=== PATIENT | male | born 1970 | race Hispanic/Latino ===

== ENCOUNTER 2020-10-11 11:03 | Inpatient (IN) | payer BC ==
[2020-10-11] VITALS (23 sets, daily range): BP systolic 48–107; BP diastolic 25–57
[~2020-10-11] VITALS: Ht 185.4 cm; Wt 147.4 kg
[2020-10-11] MEDS ORDERED: SODIUM CHLORIDE 0.9% 1000ML 1,000 ML IV STA (11:05)
[2020-10-11] MEDS ORDERED: SODIUM CHLORIDE 0.9% 250ML 250 ML IV ONE ×2 (11:15→12:00)
[2020-10-11 11:34] LABS: BASOPHILS % 0.5 % (0.0-1.0); EOSINOPHILS # (AUTO) 0.1 (0.0-0.4); EOSINOPHILS % 1.4 % (0.0-6.0); HEMATOCRIT 21.1 % (38.2-49.6); LYMPHOCYTES # (AUTO) 0.6 (1.0-3.2); LYMPHOCYTES % 8.8 % (18.0-39.1); MEAN CORPUSCULAR HEMOGLOBIN 29.9 pg (28-32); MEAN CORPUSCULAR HGB CONC 30.3 g/dL (31-35); MEAN CORPUSCULAR VOLUME 98.6 fL (81-99); MONOCYTES # (AUTO) 0.3 (0.2-0.8); MONOCYTES % 5.5 % (4.4-11.3); NEUTROPHILS # (AUTO) 4.4 (2.1-6.9); NEUTROPHILS % 70.5 % (38.7-80.0); PLATELET COUNT 62 x10e3/uL (140-360); RED BLOOD COUNT 2.14 x10e6/uL (4.3-5.7); RED CELL DISTRIBUTION WIDTH 17.8 % (11.7-14.4)
[2020-10-11 11:40] LABS: HEMOGLOBIN 6.4 g/dL (14.0-18.0)
[2020-10-11 11:46] LABS: INR 1.23; PROTHROMBIN TIME 16.2 seconds (11.9-14.5)
[2020-10-11 11:56] LABS: ALBUMIN 1.9 g/dL (3.5-5.0); ALBUMIN/GLOBULIN RATIO 0.6 (0.8-2.0); ANION GAP 26.5 mmol/L (8-16); CALCIUM 8.3 mg/dL (8.4-10.2); CREATININE, SERUM 4.37 mg/dL (0.72-1.25); POTASSIUM 5.5 mmol/L (3.5-5.1)
[2020-10-11] MEDS ORDERED: PIPERACILLIN/TAZOBAC 3.375 GM in SODIUM CHLORIDE 0.9% 50ML 50 ML IV ONE (12:00)
[2020-10-11] MEDS ORDERED: OCTREOTIDE ACETATE 500 MCG in SODIUM CHLORIDE 0.9% 250ML 250 ML IV SCH (12:00)
[2020-10-11] MEDS ORDERED: PROPOFOL IV EMULSION 10MG/ML 100 ML IV PRN (12:00)
[2020-10-11] MEDS ORDERED: NOREPINEPHRINE INJ 4MG/4ML 8 MG in DEXTROSE 5% 250ML 250 ML IV SCH (12:00)
[2020-10-11] MEDS ORDERED: NOREPINEPHRINE 8 MG/D5W 250 ML 250 ML IV PRN (12:00)
[2020-10-11 12:02] LABS: B-TYPE NATRIURETIC PEPTIDE2 67.7 pg/mL (0-100)
[2020-10-11] MEDS: PROPOFOL IV EMULSION 10MG/ML 100 ML IV SCH (12:15)
[2020-10-11 12:16] LABS: ANISOCYTOSIS SLIGHT; BAND NEUTROPHILS % (MANUAL) 4 %; EOSINOPHILS % (MANUAL) 1 % (0-7); LYMPHOCYTES % (MANUAL) 9 % (19-48); MONOCYTES % (MANUAL) 6 % (3.4-9.0); MYELOCYTES % (MANUAL) 6 % (0-0); NEUTROPHILS % (MANUAL) 74 % (40-74); NUCLEATED RED BLOOD CELLS 10; PLATELET ESTIMATE MODERATELY DECREASED; PLATELET MORPHOLOGY COMMENT NORMAL; RBC MORPHOLOGY COMMENT ABNORMAL
[2020-10-11 12:17] LABS: POLYCHROMASIA FEW
[2020-10-11] MEDS: NOREPINEPHRINE 8 MG/D5W 250 ML 250 ML IV SCH (12:21)
[2020-10-11] MEDS ORDERED: VANCOMYCIN 1GM/NS 250 ML 250 ML IV ONE (12:30)
[2020-10-11] MEDS ORDERED: ACETAMINOPHEN 325 MG TAB PO ONE (12:45)
[2020-10-11] MEDS ORDERED: ETOMIDATE 2 MG/ML 10 ML INJ IV ONE (12:58)
[2020-10-11] MEDS ORDERED: SUCCINYLCHOLINE CHLORIDE 20 MG/ML 10ML VIAL ONE (12:58)
[2020-10-11] MEDS ORDERED: PANTOPRAZOLE 40 MG 10ML VIAL IV SCH (13:00)
[2020-10-11] MEDS: OCTREOTIDE ACETATE 500 MCG in SODIUM CHLORIDE 0.9% 250ML 249 ML IV SCH ×2 (13:00→23:15)
[2020-10-11] MEDS: LORAZEPAM INJ 2 MG/ML VIAL IV PRN (13:00)
[2020-10-11 13:06] LABS: BASOPHILS % 0.6 % (0.0-1.0); EOSINOPHILS # (AUTO) 0.1 (0.0-0.4); EOSINOPHILS % 1.9 % (0.0-6.0); HEMATOCRIT 24.7 % (38.2-49.6); HEMOGLOBIN 7.7 g/dL (14.0-18.0); LYMPHOCYTES # (AUTO) 0.6 (1.0-3.2); MEAN CORPUSCULAR HEMOGLOBIN 30.4 pg (28-32); MEAN CORPUSCULAR HGB CONC 31.2 g/dL (31-35); MEAN CORPUSCULAR VOLUME 97.6 fL (81-99); MONOCYTES # (AUTO) 0.3 (0.2-0.8); MONOCYTES % 4.2 % (4.4-11.3); NEUTROPHILS # (AUTO) 4.3 (2.1-6.9); NEUTROPHILS % 66.5 % (38.7-80.0); PLATELET COUNT 56 x10e3/uL (140-360); RED BLOOD COUNT 2.53 x10e6/uL (4.3-5.7); RED CELL DISTRIBUTION WIDTH 16.9 % (11.7-14.4)
[2020-10-11] MEDS: FENTANYL 2000MCG/NS 250 250 ML IV SCH (13:45)
[2020-10-11] MEDS ORDERED: SODIUM CHLORIDE 0.9% 250ML 250 ML ONE ×3 (13:46→21:13)
[2020-10-11] MEDS ORDERED: PIPERACILLIN/TAZOBAC 3.375 GM VIAL ONE (14:00)
[2020-10-11 14:01] LABS: ABG HCO3 22 mmol/L (22-26); ABG PCO2 47 mmHg (35-45); ABG PH 7.27 (7.35-7.45); ABG PO2 79 mmHg (80-105); ABG TCO2 23
[2020-10-11] MEDS ORDERED: SODIUM CHLORIDE 0.9% 100 ML ONE (14:01)
[2020-10-11] MEDS: MEROPENEM 500MG/ NS 50ML 50 ML IV SCH (15:00)
[2020-10-11 17:18] LABS: BAND NEUTROPHILS % (MANUAL) 7 %; LYMPHOCYTES % (MANUAL) 8 % (19-48); METAMYELOCYTES % (MANUAL) 8 % (0-0); MONOCYTES % (MANUAL) 5 % (3.4-9.0); MYELOCYTES % (MANUAL) 5 % (0-0); NEUTROPHILS % (MANUAL) 65 % (40-74); NUCLEATED RED BLOOD CELLS 9; PROMYELOCYTES % (MANUAL) 2 % (0-0)
[2020-10-11 17:19] LABS: PLATELET ESTIMATE MARKEDLY DECREASED
[2020-10-11 17:20] LABS: PLATELET MORPHOLOGY COMMENT FEW GIANT
[2020-10-11 17:21] LABS: POLYCHROMASIA MODE
[2020-10-11] MEDS ORDERED: PHYTONADIONE 1 MG/0.5 ML AMP INJ ONE (19:15)
[2020-10-11] MEDS ORDERED: ONDANSETRON HCL INJ 2MG/ML 2ML 2 MG/ML VIAL IV PRN (19:45)
[2020-10-11] MEDS ORDERED: PHYTONADIONE 10MG/ML 20 MG in SODIUM CHLORIDE 0.9% 50ML 50 ML IV ONE (19:45)
[2020-10-11] MEDS ORDERED: HEPARIN SOD (PORCINE) 1000 UNIT/ML SDV IV ONE (20:00)
[2020-10-11] MEDS ORDERED: MIDODRINE HCL5 MG PO (20:53)
[2020-10-11] MEDS ORDERED: TYLENOL # 31 EA PO (20:55)
[2020-10-11] MEDS ORDERED: MIDODRINE HCL2.5 MG PO (20:55)
[2020-10-11] MEDS: PANTOPRAZOL 40MG/SOD CHL 0.9% 50 ML IV SCH (22:04)
[2020-10-11 23:31] LABS: BASOPHILS % 0.6 % (0.0-1.0); EOSINOPHILS # (AUTO) 0.2 (0.0-0.4); EOSINOPHILS % 2.8 % (0.0-6.0); HEMATOCRIT 26.7 % (38.2-49.6); HEMOGLOBIN 8.5 g/dL (14.0-18.0); LYMPHOCYTES # (AUTO) 0.5 (1.0-3.2); MEAN CORPUSCULAR HGB CONC 31.8 g/dL (31-35); MEAN CORPUSCULAR VOLUME 94.3 fL (81-99); MONOCYTES # (AUTO) 0.4 (0.2-0.8); MONOCYTES % 6.1 % (4.4-11.3); NEUTROPHILS # (AUTO) 4.7 (2.1-6.9); NEUTROPHILS % 70.8 % (38.7-80.0); PLATELET COUNT 83 x10e3/uL (140-360); RED BLOOD COUNT 2.83 x10e6/uL (4.3-5.7); RED CELL DISTRIBUTION WIDTH 17.3 % (11.7-14.4)
[2020-10-12] VITALS (24 sets, daily range): BP systolic 82–107; BP diastolic 44–65
[2020-10-12] MEDS ORDERED: ACETAMINOPHEN 1000 MG/100 ML IV STA (00:11)
[2020-10-12] MEDS ORDERED: ALBUMIN 25% 25GM 100ML 0.25 GM/ML BTL IV ONE (00:15)
[2020-10-12] MEDS ORDERED: PHENYLEPHRINE 10MG/ML VIAL 40 MG in DEXTROSE 5% 250ML 246 ML IV SCH (00:15)
[2020-10-12] MEDS ORDERED: ALBUMIN 25% 25GM 100ML 100 ML ONE (00:19)
[2020-10-12] MEDS ORDERED: ACETAMINOPHEN 1000 MG/100 ML 100 ML IV ONE (00:32)
[2020-10-12] MEDS: PANTOPRAZOL 40MG/SOD CHL 0.9% 50 ML IV SCH ×5 (02:16→22:00)
[2020-10-12] MEDS: MEROPENEM 500MG/ NS 50ML 50 ML IV SCH ×2 (02:25→20:30)
[2020-10-12] MEDS ORDERED: PHENYLEPHRINE 10MG/ML VIAL 40 MG in DEXTROSE 5% 250ML 246 ML IV PRN (04:15)
[2020-10-12 04:57] LABS: BASOPHILS % 0.5 % (0.0-1.0); EOSINOPHILS # (AUTO) 0.2 (0.0-0.4); EOSINOPHILS % 3.3 % (0.0-6.0); HEMATOCRIT 26.5 % (38.2-49.6); HEMOGLOBIN 8.4 g/dL (14.0-18.0); LYMPHOCYTES # (AUTO) 0.7 (1.0-3.2); LYMPHOCYTES % 10.8 % (18.0-39.1); MEAN CORPUSCULAR HGB CONC 31.7 g/dL (31-35); MEAN CORPUSCULAR VOLUME 94.6 fL (81-99); MONOCYTES # (AUTO) 0.2 (0.2-0.8); MONOCYTES % 3.6 % (4.4-11.3); NEUTROPHILS # (AUTO) 4.4 (2.1-6.9); NEUTROPHILS % 70.2 % (38.7-80.0); PLATELET COUNT 78 x10e3/uL (140-360); RED CELL DISTRIBUTION WIDTH 17.3 % (11.7-14.4)
[2020-10-12 05:20] LABS: ALBUMIN 2.2 g/dL (3.5-5.0); ALBUMIN/GLOBULIN RATIO 0.7 (0.8-2.0); ANION GAP 25.8 mmol/L (8-16); CALCIUM 8.2 mg/dL (8.4-10.2); CREATININE, SERUM 4.45 mg/dL (0.72-1.25); POTASSIUM 4.8 mmol/L (3.5-5.1)
[2020-10-12 05:40] LABS: MAGNESIUM 2.1 MG/DL (1.3-2.1); PHOSPHORUS 4.8 MG/DL (2.3-4.7)
[2020-10-12] MEDS: VASOPRESSIN 60 UNIT in DEXTROSE 5% 50ML 57 ML IV PRN (05:57)
[2020-10-12] MEDS ORDERED: VASOPRESSIN INJ 20 UNIT/ML VIAL ONE (06:08)
[2020-10-12 07:07] LABS: BAND NEUTROPHILS % (MANUAL) 3 %; EOSINOPHILS % (MANUAL) 6 % (0-7); LYMPHOCYTES % (MANUAL) 11 % (19-48); MONOCYTES % (MANUAL) 3 % (3.4-9.0); MYELOCYTES % (MANUAL) 2 % (0-0); NEUTROPHILS % (MANUAL) 75 % (40-74); NUCLEATED RED BLOOD CELLS 21
[2020-10-12 07:08] LABS: PLATELET ESTIMATE SLIGHTLY DECREASED; PLATELET MORPHOLOGY COMMENT NORMAL; POLYCHROMASIA FEW
[2020-10-12 07:09] LABS: ANISOCYTOSIS SLIGHT; RBC MORPHOLOGY COMMENT ABNORMAL
[2020-10-12] MEDS: OCTREOTIDE ACETATE 500 MCG in SODIUM CHLORIDE 0.9% 250ML 249 ML IV SCH ×2 (09:24→19:00)
[2020-10-12] MEDS: PROPOFOL IV EMULSION 10MG/ML 100 ML IV SCH (12:15)
[2020-10-12] MEDS: NOREPINEPHRINE 8 MG/D5W 250 ML 250 ML IV SCH ×2 (12:43→19:00)
[2020-10-12] MEDS: FENTANYL 2000MCG/NS 250 250 ML IV SCH (12:44)
[2020-10-12] MEDS ORDERED: MANNITOL 25% 12.5GM/50ML 100 ML ONE (16:05)
[2020-10-12] MEDS ORDERED: SODIUM CHLORIDE 0.9% 1000ML 2,000 ML ONE (16:06)
[2020-10-12] MEDS ORDERED: HEPARIN SOD (PORCINE) 1000 UNIT/ML SDV IV PRN (16:30)
[2020-10-12] MEDS ORDERED: MANNITOL 25% 12.5GM/50 ML VIAL IV PRN (16:30)
[2020-10-12] MEDS ORDERED: SODIUM CHLORIDE 0.9% 1000ML 2,000 ML IV PRN (16:30)
[2020-10-12 17:19] LABS: CLARITY,URINE CLOUDY (CLEAR); COLOR,URINE RED (YELLOW); KETONES,URINE NEGATIVE (NEGATIVE); LEUKOCYTE ESTERASE ,URINE LARGE (NEGATIVE); NITRITE,URINE NEGATIVE (NEGATIVE); PROTEIN,URINE DIPSTICK >=300 (NEGATIVE); URINE UROBILINOGEN 0.2 mg/dL (0.2 - 1)
[2020-10-12 17:20] LABS: CLARITY,URINE CLOUDY (CLEAR); COLOR,URINE RED (YELLOW); KETONES,URINE NEGATIVE (NEGATIVE); LEUKOCYTE ESTERASE ,URINE TRACE (NEGATIVE); NITRITE,URINE POSITIVE (NEGATIVE); PROTEIN,URINE DIPSTICK 2+ (NEGATIVE); URINE UROBILINOGEN 1 mg/dL (0.2 - 1)
[2020-10-12 17:33] LABS: BACTERIA,URINE MANY /HPF
[2020-10-12 17:34] LABS: BACTERIA,URINE FEW /HPF; RBC,URINE >50 /HPF (0-5); WBC,URINE (MAN) 0-5 /HPF (0-5)
[2020-10-12 17:50] LABS: ABG HCO3 36 mmol/L (22-26); ABG PCO2 64 mmHg (35-45); ABG PH 7.36 (7.35-7.45); ABG PO2 159 mmHg (80-105); ABG TCO2 38
[2020-10-12] MEDS: ACETAMINOPHEN 325 MG TAB NG PRN (17:51)
[2020-10-13] VITALS (39 sets, daily range): BP systolic 80–117; BP diastolic 40–60
[2020-10-13] MEDS: ACETAMINOPHEN 325 MG TAB NG PRN ×4 (00:08→21:11)
[2020-10-13] MEDS: NOREPINEPHRINE 8 MG/D5W 250 ML 250 ML IV SCH ×2 (00:11→21:00)
[2020-10-13] MEDS: VASOPRESSIN 60 UNIT in DEXTROSE 5% 50ML 57 ML IV PRN ×2 (04:07→20:24)
[2020-10-13] MEDS: PANTOPRAZOL 40MG/SOD CHL 0.9% 50 ML IV SCH ×5 (04:07→20:24)
[2020-10-13 06:34] LABS: BASOPHILS % 0.5 % (0.0-1.0); EOSINOPHILS # (AUTO) 0.3 (0.0-0.4); EOSINOPHILS % 4.3 % (0.0-6.0); HEMATOCRIT 24.9 % (38.2-49.6); HEMOGLOBIN 7.8 g/dL (14.0-18.0); LYMPHOCYTES # (AUTO) 0.5 (1.0-3.2); LYMPHOCYTES % 7.5 % (18.0-39.1); MEAN CORPUSCULAR HEMOGLOBIN 29.9 pg (28-32); MEAN CORPUSCULAR HGB CONC 31.3 g/dL (31-35); MEAN CORPUSCULAR VOLUME 95.4 fL (81-99); MONOCYTES # (AUTO) 0.4 (0.2-0.8); MONOCYTES % 5.3 % (4.4-11.3); NEUTROPHILS # (AUTO) 4.5 (2.1-6.9); NEUTROPHILS % 68.4 % (38.7-80.0); PLATELET COUNT 56 x10e3/uL (140-360); RED BLOOD COUNT 2.61 x10e6/uL (4.3-5.7); RED CELL DISTRIBUTION WIDTH 18.1 % (11.7-14.4)
[2020-10-13 06:45] LABS: ALBUMIN 1.9 g/dL (3.5-5.0); ALBUMIN/GLOBULIN RATIO 0.6 (0.8-2.0); ANION GAP 23.2 mmol/L (8-16); CALCIUM 7.7 mg/dL (8.4-10.2); CREATININE, SERUM 3.41 mg/dL (0.72-1.25); MAGNESIUM 1.8 MG/DL (1.3-2.1); PHOSPHORUS 3.6 MG/DL (2.3-4.7); POTASSIUM 4.2 mmol/L (3.5-5.1)
[2020-10-13] MEDS: OCTREOTIDE ACETATE 500 MCG in SODIUM CHLORIDE 0.9% 250ML 249 ML IV SCH ×2 (07:25→18:07)
[2020-10-13] MEDS: LORAZEPAM INJ 2 MG/ML VIAL IV PRN (08:52)
[2020-10-13] MEDS: FENTANYL 2000MCG/NS 250 250 ML IV SCH (08:52)
[2020-10-13] MEDS: MEROPENEM 500MG/ NS 50ML 50 ML IV SCH ×2 (09:30→21:10)
[2020-10-13 09:36] LABS: BAND NEUTROPHILS % (MANUAL) 3 %; EOSINOPHILS % (MANUAL) 4 % (0-7); LYMPHOCYTES % (MANUAL) 8 % (19-48); MONOCYTES % (MANUAL) 3 % (3.4-9.0); MYELOCYTES % (MANUAL) 1 % (0-0); NEUTROPHILS % (MANUAL) 81 % (40-74); NUCLEATED RED BLOOD CELLS 2
[2020-10-13] MEDS ORDERED: ALBUMIN 25% 25GM 100ML 0.25 GM/ML BTL IV ONE (10:02)
[2020-10-13] MEDS ORDERED: SENNA-S TABLET PO ONE (10:30)
[2020-10-13] MEDS ORDERED: MANNITOL 25% 12.5GM/50 ML VIAL IV PRN (11:15)
[2020-10-13] MEDS ORDERED: ALBUMIN 25% 12.5GM 0.25 GM/ML BTL IV PRN ×2 (11:15)
[2020-10-13] MEDS ORDERED: SODIUM CHLORIDE 0.9% 1000ML 2,000 ML IV PRN (11:15)
[2020-10-13] MEDS ORDERED: HEPARIN SOD (PORCINE) 1000 UNIT/ML SDV IV PRN (11:15)
[2020-10-13] MEDS ORDERED: SODIUM CHLORIDE 0.9% 250ML 500 ML IV PRN (11:15)
[2020-10-13] MEDS: PROPOFOL IV EMULSION 10MG/ML 100 ML IV SCH (12:15)
[2020-10-13] MEDS: HYDROCORTISONE SOD SUCCINATE 100 MG VIAL IV SCH ×3 (13:39→21:10)
[2020-10-13] MEDS ORDERED: VASOPRESSIN INJ 20 UNIT/ML VIAL ONE (19:52)
[2020-10-14] VITALS (25 sets, daily range): BP systolic 92–145; BP diastolic 52–84
[2020-10-14] MEDS: PANTOPRAZOL 40MG/SOD CHL 0.9% 50 ML IV SCH ×5 (01:06→23:00)
[2020-10-14] MEDS: OCTREOTIDE ACETATE 500 MCG in SODIUM CHLORIDE 0.9% 250ML 249 ML IV SCH ×4 (04:00→22:00)
[2020-10-14 06:32] LABS: BASOPHILS % 0.5 % (0.0-1.0); EOSINOPHILS # (AUTO) 0.1 (0.0-0.4); EOSINOPHILS % 1.4 % (0.0-6.0); LYMPHOCYTES # (AUTO) 0.6 (1.0-3.2); LYMPHOCYTES % 10.1 % (18.0-39.1); MEAN CORPUSCULAR HGB CONC 31.5 g/dL (31-35); MEAN CORPUSCULAR VOLUME 95.3 fL (81-99); MONOCYTES # (AUTO) 0.3 (0.2-0.8); MONOCYTES % 4.9 % (4.4-11.3); NEUTROPHILS # (AUTO) 3.9 (2.1-6.9); NEUTROPHILS % 70.8 % (38.7-80.0); RED BLOOD COUNT 2.33 x10e6/uL (4.3-5.7); RED CELL DISTRIBUTION WIDTH 18.5 % (11.7-14.4)
[2020-10-14 06:37] LABS: HEMATOCRIT 22.2 % (38.2-49.6); PLATELET COUNT 34 x10e3/uL (140-360)
[2020-10-14] MEDS: NOREPINEPHRINE 8 MG/D5W 250 ML 250 ML IV SCH ×2 (06:45→22:00)
[2020-10-14] MEDS: HYDROCORTISONE SOD SUCCINATE 100 MG VIAL IV SCH ×3 (06:45→22:00)
[2020-10-14 07:00] LABS: ALBUMIN 2.1 g/dL (3.5-5.0); ALBUMIN/GLOBULIN RATIO 0.7 (0.8-2.0); ANION GAP 17.3 mmol/L (8-16); CALCIUM 7.6 mg/dL (8.4-10.2); CREATININE, SERUM 3.13 mg/dL (0.72-1.25); POTASSIUM 4.3 mmol/L (3.5-5.1)
[2020-10-14 08:56] LABS: BAND NEUTROPHILS % (MANUAL) 3 %; EOSINOPHILS % (MANUAL) 2 % (0-7); LYMPHOCYTES % (MANUAL) 7 % (19-48); MONOCYTES % (MANUAL) 3 % (3.4-9.0); MYELOCYTES % (MANUAL) 1 % (0-0); NEUTROPHILS % (MANUAL) 84 % (40-74)
[2020-10-14] MEDS ORDERED: ACETAMINOPHEN 325 MG TAB PO ONE (08:57)
[2020-10-14] MEDS: MEROPENEM 500MG/ NS 50ML 50 ML IV SCH ×2 (09:00→20:30)
[2020-10-14] MEDS ORDERED: SODIUM CHLORIDE 0.9% 250ML 250 ML IV ONE (09:00)
[2020-10-14] MEDS ORDERED: SODIUM CHLORIDE 0.9% 1000ML 2,000 ML ONE (11:05)
[2020-10-14] MEDS ORDERED: SODIUM CHLORIDE 0.9% 250ML 750 ML ONE (11:27)
[2020-10-14 15:52] LABS: ABG HCO3 25 mmol/L (22-26); ABG PCO2 37 mmHg (35-45); ABG PH 7.44 (7.35-7.45); ABG PO2 56 mmHg (80-105); ABG TCO2 26
[2020-10-14] MEDS ORDERED: SODIUM CHLORIDE 0.9% 250ML 250 ML ONE (19:55)
[2020-10-15] VITALS (25 sets, daily range): BP systolic 85–118; BP diastolic 45–88
[2020-10-15] MEDS: LORAZEPAM INJ 2 MG/ML VIAL IV PRN ×2 (03:36→09:30)
[2020-10-15] MEDS: HYDROCORTISONE SOD SUCCINATE 100 MG VIAL IV SCH ×3 (06:00→22:00)
[2020-10-15 06:42] LABS: BASOPHILS % 0.6 % (0.0-1.0); EOSINOPHILS % 0.6 % (0.0-6.0); HEMATOCRIT 24.8 % (38.2-49.6); LYMPHOCYTES # (AUTO) 0.5 (1.0-3.2); LYMPHOCYTES % 10.7 % (18.0-39.1); MEAN CORPUSCULAR HEMOGLOBIN 30.8 pg (28-32); MEAN CORPUSCULAR HGB CONC 32.3 g/dL (31-35); MEAN CORPUSCULAR VOLUME 95.4 fL (81-99); MONOCYTES # (AUTO) 0.2 (0.2-0.8); MONOCYTES % 4.8 % (4.4-11.3); NEUTROPHILS # (AUTO) 3.4 (2.1-6.9); NEUTROPHILS % 70.1 % (38.7-80.0); RED CELL DISTRIBUTION WIDTH 18.7 % (11.7-14.4)
[2020-10-15 06:56] LABS: PLATELET COUNT 42 x10e3/uL (140-360)
[2020-10-15 07:06] LABS: ALBUMIN/GLOBULIN RATIO 0.6 (0.8-2.0); ANION GAP 21.5 mmol/L (8-16); CALCIUM 7.8 mg/dL (8.4-10.2); CREATININE, SERUM 3.4 mg/dL (0.72-1.25); POTASSIUM 4.5 mmol/L (3.5-5.1)
[2020-10-15 07:55] LABS: BAND NEUTROPHILS % (MANUAL) 4 %; EOSINOPHILS % (MANUAL) 1 % (0-7); LYMPHOCYTES % (MANUAL) 10 % (19-48); MONOCYTES % (MANUAL) 9 % (3.4-9.0); NEUTROPHILS % (MANUAL) 76 % (40-74)
[2020-10-15 07:56] LABS: PLATELET ESTIMATE MARKEDLY DECREASED; PLATELET MORPHOLOGY COMMENT NORMAL; RBC MORPHOLOGY COMMENT NORMAL
[2020-10-15] MEDS: OCTREOTIDE ACETATE 500 MCG in SODIUM CHLORIDE 0.9% 250ML 249 ML IV SCH (08:18)
[2020-10-15] MEDS: PANTOPRAZOL 40MG/SOD CHL 0.9% 50 ML IV SCH ×5 (08:18→22:30)
[2020-10-15] MEDS: MEROPENEM 500MG/ NS 50ML 50 ML IV SCH ×2 (08:27→21:00)
[2020-10-15] MEDS ORDERED: ALBUMIN 25% 25GM 100ML 0.25 GM/ML BTL IV PRN (09:00)
[2020-10-15] MEDS ORDERED: HEPARIN SOD (PORCINE) 1000 UNIT/ML SDV IV PRN (09:00)
[2020-10-15] MEDS ORDERED: FENTANYL CITRATE/PF 100MCG/2 ML INJ ONE ×2 (14:27→15:43)
[2020-10-15] MEDS ORDERED: MIDAZOLAM HCL 2 MG/2 ML VIAL ONE ×2 (14:27→15:43)
[2020-10-15] MEDS: VASOPRESSIN 60 UNIT in DEXTROSE 5% 50ML 57 ML IV PRN (19:00)
[2020-10-16] VITALS (25 sets, daily range): BP systolic 69–109; BP diastolic 40–56
[2020-10-16] MEDS: LORAZEPAM INJ 2 MG/ML VIAL IV PRN (01:15)
[2020-10-16] MEDS: PANTOPRAZOL 40MG/SOD CHL 0.9% 50 ML IV SCH ×4 (04:00→20:53)
[2020-10-16] MEDS: HYDROCORTISONE SOD SUCCINATE 100 MG VIAL IV SCH ×3 (05:00→20:53)
[2020-10-16] MEDS: NOREPINEPHRINE 8 MG/D5W 250 ML 250 ML IV SCH (05:00)
[2020-10-16] MEDS: OCTREOTIDE ACETATE 500 MCG in SODIUM CHLORIDE 0.9% 250ML 249 ML IV SCH ×3 (06:00→23:00)
[2020-10-16 06:18] LABS: % IRON SATURATION 54 % (15-50); IRON 65 ug/dL (65-175); TOTAL IRON BINDING CAPACITY 120 ug/dL (261-478); TRANSFERRIN 86 mg/dL (174-364)
[2020-10-16 09:38] LABS: ALBUMIN 2.2 g/dL (3.5-5.0); ALBUMIN/GLOBULIN RATIO 0.7 (0.8-2.0); ANION GAP 22.2 mmol/L (8-16); CALCIUM 7.9 mg/dL (8.4-10.2); CREATININE, SERUM 2.75 mg/dL (0.72-1.25); POTASSIUM 4.2 mmol/L (3.5-5.1)
[2020-10-16 10:00] LABS: BASOPHILS % 0.8 % (0.0-1.0); EOSINOPHILS % 0.4 % (0.0-6.0); HEMATOCRIT 27.4 % (38.2-49.6); HEMOGLOBIN 8.6 g/dL (14.0-18.0); LYMPHOCYTES # (AUTO) 0.6 (1.0-3.2); LYMPHOCYTES % 10.8 % (18.0-39.1); MEAN CORPUSCULAR HEMOGLOBIN 30.5 pg (28-32); MEAN CORPUSCULAR HGB CONC 31.4 g/dL (31-35); MEAN CORPUSCULAR VOLUME 97.2 fL (81-99); MONOCYTES # (AUTO) 0.2 (0.2-0.8); MONOCYTES % 4.5 % (4.4-11.3); NEUTROPHILS # (AUTO) 3.6 (2.1-6.9); NEUTROPHILS % 70.6 % (38.7-80.0); RED BLOOD COUNT 2.82 x10e6/uL (4.3-5.7)
[2020-10-16 10:05] LABS: PLATELET COUNT 48 x10e3/uL (140-360)
[2020-10-16] MEDS: MEROPENEM 500MG/ NS 50ML 50 ML IV SCH (10:22)
[2020-10-16 11:01] LABS: LYMPHOCYTES % (MANUAL) 13 % (19-48); MONOCYTES % (MANUAL) 5 % (3.4-9.0); MYELOCYTES % (MANUAL) 2 % (0-0); NEUTROPHILS % (MANUAL) 79 % (40-74); NUCLEATED RED BLOOD CELLS 4; PROMYELOCYTES % (MANUAL) 1 % (0-0)
[2020-10-16 11:02] LABS: ANISOCYTOSIS F; BURR CELLS SLIGHT; HYPOCHROMASIA MODE; STOMATOCYTES SLIGHT
[2020-10-16 11:03] LABS: PLATELET ESTIMATE MARKEDLY DECREASED; POLYCHROMASIA MODE; RBC MORPHOLOGY COMMENT ABNORMAL
[2020-10-17] VITALS (25 sets, daily range): BP systolic 72–102; BP diastolic 41–70
[2020-10-17] MEDS: PANTOPRAZOL 40MG/SOD CHL 0.9% 50 ML IV SCH ×5 (00:42→22:30)
[2020-10-17] MEDS: NOREPINEPHRINE 8 MG/D5W 250 ML 250 ML IV SCH (00:56)
[2020-10-17] MEDS: HYDROCORTISONE SOD SUCCINATE 100 MG VIAL IV SCH ×3 (06:48→21:09)
[2020-10-17 06:52] LABS: BASOPHILS % 0.3 % (0.0-1.0); EOSINOPHILS % 0.3 % (0.0-6.0); HEMATOCRIT 28.1 % (38.2-49.6); HEMOGLOBIN 8.6 g/dL (14.0-18.0); LYMPHOCYTES # (AUTO) 0.8 (1.0-3.2); LYMPHOCYTES % 11.4 % (18.0-39.1); MEAN CORPUSCULAR HEMOGLOBIN 30.3 pg (28-32); MEAN CORPUSCULAR HGB CONC 30.6 g/dL (31-35); MEAN CORPUSCULAR VOLUME 98.9 fL (81-99); MONOCYTES # (AUTO) 0.2 (0.2-0.8); NEUTROPHILS % 74.7 % (38.7-80.0); RED BLOOD COUNT 2.84 x10e6/uL (4.3-5.7); RED CELL DISTRIBUTION WIDTH 19.9 % (11.7-14.4)
[2020-10-17 06:54] LABS: ALBUMIN 2.2 g/dL (3.5-5.0); ALBUMIN/GLOBULIN RATIO 0.7 (0.8-2.0); ANION GAP 25.6 mmol/L (8-16); CREATININE, SERUM 3.21 mg/dL (0.72-1.25); PLATELET COUNT 43 x10e3/uL (140-360); POTASSIUM 4.6 mmol/L (3.5-5.1)
[2020-10-17] MEDS: OCTREOTIDE ACETATE 500 MCG in SODIUM CHLORIDE 0.9% 250ML 249 ML IV SCH ×2 (11:45→22:30)
[2020-10-18] VITALS (26 sets, daily range): BP systolic 85–107; BP diastolic 47–70
[2020-10-18] MEDS: PANTOPRAZOL 40MG/SOD CHL 0.9% 50 ML IV SCH ×2 (02:30→07:46)
[2020-10-18] MEDS: HYDROCORTISONE SOD SUCCINATE 100 MG VIAL IV SCH ×3 (05:32→22:30)
[2020-10-18 06:24] LABS: HEMOGLOBIN 7.8 g/dL (14.0-18.0); MEAN CORPUSCULAR HEMOGLOBIN 30.4 pg (28-32); MEAN CORPUSCULAR VOLUME 101.2 fL (81-99); RED BLOOD COUNT 2.57 x10e6/uL (4.3-5.7)
[2020-10-18 06:30] LABS: PLATELET COUNT 38 x10e3/uL (140-360)
[2020-10-18 06:47] LABS: ALBUMIN 2.3 g/dL (3.5-5.0); ALBUMIN/GLOBULIN RATIO 0.7 (0.8-2.0); ANION GAP 25.3 mmol/L (8-16); CREATININE, SERUM 2.96 mg/dL (0.72-1.25); POTASSIUM 4.3 mmol/L (3.5-5.1)
[2020-10-18 07:12] LABS: BAND NEUTROPHILS % (MANUAL) 8 %; LYMPHOCYTES % (MANUAL) 14 % (19-48); METAMYELOCYTES % (MANUAL) 3 % (0-0); MONOCYTES % (MANUAL) 3 % (3.4-9.0); NEUTROPHILS % (MANUAL) 72 % (40-74); NUCLEATED RED BLOOD CELLS 1
[2020-10-18 07:15] LABS: ANISOCYTOSIS MODERATE; HYPOCHROMASIA SLIGHT; PLATELET ESTIMATE MARKEDLY DECREASED; PLATELET MORPHOLOGY COMMENT NORMAL; POLYCHROMASIA FEW; RBC MORPHOLOGY COMMENT ABNORMAL
[2020-10-18] MEDS: OCTREOTIDE ACETATE 500 MCG in SODIUM CHLORIDE 0.9% 250ML 249 ML IV SCH (07:45)
[2020-10-18] MEDS: NOREPINEPHRINE 8 MG/D5W 250 ML 250 ML IV SCH (12:21)
[2020-10-18] MEDS: ACETAMINOPHEN 325 MG TAB NG PRN (12:41)
[2020-10-18] MEDS: LINEZOLID 600 MG/D5W 300ML 300 ML IV SCH (18:40)
[2020-10-18] MEDS ORDERED: SODIUM CHLORIDE 0.9% 250ML 250 ML ONE (18:40)
[2020-10-18] MEDS: PIPERACILLIN/TAZOBACTAM 2.25 GM in SODIUM CHLORIDE 0.9% 50ML 50 ML IV SCH (20:15)
[2020-10-18] MEDS: PANTOPRAZOLE 40 MG 10ML VIAL IV SCH (20:16)
[2020-10-19] VITALS (26 sets, daily range): BP systolic 82–114; BP diastolic 43–64
[2020-10-19] MEDS: PIPERACILLIN/TAZOBACTAM 2.25 GM in SODIUM CHLORIDE 0.9% 50ML 50 ML IV SCH ×3 (04:00→20:05)
[2020-10-19] MEDS ORDERED: ACETAMINOPHEN 1000 MG/100 ML 100 ML IV ONE (05:11)
[2020-10-19] MEDS ORDERED: ACETAMINOPHEN 1000 MG/100 ML IV STA (05:18)
[2020-10-19] MEDS: METOCLOPRAMIDE HCL 10 MG/2ML VIAL IV SCH ×3 (05:57→17:13)
[2020-10-19] MEDS: LINEZOLID 600 MG/D5W 300ML 300 ML IV SCH ×2 (05:57→17:13)
[2020-10-19] MEDS: HYDROCORTISONE SOD SUCCINATE 100 MG VIAL IV SCH ×3 (05:57→22:00)
[2020-10-19 06:05] LABS: BASOPHILS % 0.6 % (0.0-1.0); EOSINOPHILS % 0.4 % (0.0-6.0); HEMATOCRIT 25.2 % (38.2-49.6); HEMOGLOBIN 7.6 g/dL (14.0-18.0); LYMPHOCYTES # (AUTO) 0.7 (1.0-3.2); LYMPHOCYTES % 13.1 % (18.0-39.1); MEAN CORPUSCULAR HGB CONC 30.2 g/dL (31-35); MEAN CORPUSCULAR VOLUME 102.9 fL (81-99); MONOCYTES # (AUTO) 0.2 (0.2-0.8); MONOCYTES % 3.9 % (4.4-11.3); NEUTROPHILS # (AUTO) 3.7 (2.1-6.9); RED BLOOD COUNT 2.45 x10e6/uL (4.3-5.7); RED CELL DISTRIBUTION WIDTH 20.9 % (11.7-14.4)
[2020-10-19 06:08] LABS: PLATELET COUNT 31 x10e3/uL (140-360)
[2020-10-19 06:23] LABS: ALBUMIN 2.1 g/dL (3.5-5.0); ALBUMIN/GLOBULIN RATIO 0.7 (0.8-2.0); ANION GAP 21.5 mmol/L (8-16); CALCIUM 7.9 mg/dL (8.4-10.2); CREATININE, SERUM 3.59 mg/dL (0.72-1.25); POTASSIUM 4.5 mmol/L (3.5-5.1)
[2020-10-19 08:34] LABS: BAND NEUTROPHILS % (MANUAL) 11 %; LYMPHOCYTES % (MANUAL) 11 % (19-48); METAMYELOCYTES % (MANUAL) 8 % (0-0); MONOCYTES % (MANUAL) 3 % (3.4-9.0); MYELOCYTES % (MANUAL) 7 % (0-0); NEUTROPHILS % (MANUAL) 60 % (40-74); NUCLEATED RED BLOOD CELLS 15
[2020-10-19 08:36] LABS: ANISOCYTOSIS MODERATE; HYPOCHROMASIA MODERATE; PLATELET ESTIMATE MARKEDLY DECREASED; PLATELET MORPHOLOGY COMMENT NORMAL; POLYCHROMASIA FEW; RBC MORPHOLOGY COMMENT ABNORMAL
[2020-10-19] MEDS: PANTOPRAZOLE 40 MG 10ML VIAL IV SCH (09:41)
[2020-10-19] MEDS: NOREPINEPHRINE 8 MG/D5W 250 ML 250 ML IV SCH ×2 (10:22→18:47)
[2020-10-19] MEDS: ACETAMINOPHEN 325 MG TAB NG PRN (13:20)
[2020-10-19] MEDS ORDERED: MIDODRINE HCL 5 MG TABLET PO ONE (14:00)
[2020-10-19] MEDS: VASOPRESSIN 60 UNIT in DEXTROSE 5% 50ML 57 ML IV PRN (19:00)
[2020-10-20] VITALS (20 sets, daily range): BP systolic 41–95; BP diastolic 11–56
[2020-10-20] MEDS: METOCLOPRAMIDE HCL 10 MG/2ML VIAL IV SCH ×4 (00:39→18:00)
[2020-10-20] MEDS: PIPERACILLIN/TAZOBACTAM 2.25 GM in SODIUM CHLORIDE 0.9% 50ML 50 ML IV SCH ×2 (03:57→11:49)
[2020-10-20] MEDS: HYDROCORTISONE SOD SUCCINATE 100 MG VIAL IV SCH ×2 (05:38→13:46)
[2020-10-20] MEDS: LINEZOLID 600 MG/D5W 300ML 300 ML IV SCH ×2 (05:38→17:45)
[2020-10-20 06:05] LABS: BASOPHILS % 1.1 % (0.0-1.0); EOSINOPHILS % 3.2 % (0.0-6.0); HEMATOCRIT 25.9 % (38.2-49.6); HEMOGLOBIN 7.5 g/dL (14.0-18.0); LYMPHOCYTES # (AUTO) 0.5 (1.0-3.2); LYMPHOCYTES % 48.9 % (18.0-39.1); MEAN CORPUSCULAR HEMOGLOBIN 30.4 pg (28-32); MEAN CORPUSCULAR VOLUME 104.9 fL (81-99); MONOCYTES # (AUTO) 0.1 (0.2-0.8); MONOCYTES % 13.8 % (4.4-11.3); NEUTROPHILS # (AUTO) 0.2 (2.1-6.9); NEUTROPHILS % 21.3 % (38.7-80.0); RED BLOOD COUNT 2.47 x10e6/uL (4.3-5.7); RED CELL DISTRIBUTION WIDTH 21.2 % (11.7-14.4)
[2020-10-20 06:08] LABS: PLATELET COUNT 24 x10e3/uL (140-360)
[2020-10-20 06:20] LABS: ALBUMIN 1.8 g/dL (3.5-5.0); ALBUMIN/GLOBULIN RATIO 0.5 (0.8-2.0); ANION GAP 21.1 mmol/L (8-16); CALCIUM 7.7 mg/dL (8.4-10.2); CREATININE, SERUM 2.53 mg/dL (0.72-1.25); POTASSIUM 4.1 mmol/L (3.5-5.1)
[2020-10-20] MEDS ORDERED: ALBUMIN 25% 25GM 100ML 100 ML ONE (06:49)
[2020-10-20] MEDS ORDERED: SODIUM CHLORIDE 0.9% 250ML 250 ML IV ONE (07:00)
[2020-10-20] MEDS ORDERED: ALBUMIN 25% 25GM 100ML 0.25 GM/ML BTL IV ONE (07:00)
[2020-10-20] MEDS: NOREPINEPHRINE 8 MG/D5W 250 ML 250 ML IV SCH ×3 (08:11→12:10)
[2020-10-20 08:41] LABS: EOSINOPHILS % (MANUAL) 1 % (0-7); LYMPHOCYTES % (MANUAL) 68 % (19-48); METAMYELOCYTES % (MANUAL) 4 % (0-0); MONOCYTES % (MANUAL) 13 % (3.4-9.0); NEUTROPHILS % (MANUAL) 13 % (40-74); NUCLEATED RED BLOOD CELLS 75; PLATELET ESTIMATE MARKEDLY DECREASED; PLATELET MORPHOLOGY COMMENT NORMAL; PROMYELOCYTES % (MANUAL) 1 % (0-0); RBC MORPHOLOGY COMMENT ABNORMAL
[2020-10-20 08:42] LABS: ANISOCYTOSIS MODE; MICROCYTOSIS MODE
[2020-10-20 08:45] LABS: HYPOCHROMASIA MODE; POIKILOCYTOSIS MODE; POLYCHROMASIA FEW
[2020-10-20] MEDS: ACETAMINOPHEN 325 MG TAB NG PRN ×2 (09:00)
[2020-10-20] MEDS: PANTOPRAZOLE 40 MG 10ML VIAL IV SCH (09:00)
[2020-10-20] MEDS: VASOPRESSIN 60 UNIT in DEXTROSE 5% 50ML 57 ML IV PRN (11:23)
[2020-10-20] MEDS ORDERED: FILGRASTIM 300 MCG/ML VIAL SC ONE (11:30)
[2020-10-20 16:24] LABS: INR 1.21
== END 2020-10-20 22:05 | disposition expired | DRG 871 ==
LOC: ER 11:48 → ERHOLD 12:09 → ICU 12:47
PROVIDERS: ADMIT Internal Medicine; ATTEND Internal Medicine
PROC: 5A1945Z Respiratory Ventilation, 24-96 Consecutive Hours (ICD-10-PCS; principal; 2020-10-11)
PROC: 0BH18EZ Insertion of Endotracheal Airway into Trachea, Via Natural or Artificial Opening Endoscopic (ICD-10-PCS; 2020-10-11)
PROC: 02HV33Z Insertion of Infusion Device into Superior Vena Cava, Percutaneous Approach (ICD-10-PCS; 2020-10-11)
PROC: B548ZZA Ultrasonography of Superior Vena Cava, Guidance (ICD-10-PCS; 2020-10-11)
PROC: 3E043XZ Introduction of Vasopressor into Central Vein, Percutaneous Approach (ICD-10-PCS; 2020-10-11)
PROC: 30243N1 Transfusion of Nonautologous Red Blood Cells into Central Vein, Percutaneous Approach (ICD-10-PCS; 2020-10-11)
PROC: 5A1D70Z Performance of Urinary Filtration, Intermittent, Less than 6 Hours Per Day (ICD-10-PCS; 2020-10-12)
PROC: 5A1D70Z Performance of Urinary Filtration, Intermittent, Less than 6 Hours Per Day (ICD-10-PCS; 2020-10-13)
PROC: 5A1D70Z Performance of Urinary Filtration, Intermittent, Less than 6 Hours Per Day (ICD-10-PCS; 2020-10-14)
PROC: 0T25X0Z Change Drainage Device in Kidney, External Approach (ICD-10-PCS; 2020-10-15)
PROC: 5A1D70Z Performance of Urinary Filtration, Intermittent, Less than 6 Hours Per Day (ICD-10-PCS; 2020-10-15)
PROC: 5A1D70Z Performance of Urinary Filtration, Intermittent, Less than 6 Hours Per Day (ICD-10-PCS; 2020-10-17)
PROC: 5A1D70Z Performance of Urinary Filtration, Intermittent, Less than 6 Hours Per Day (ICD-10-PCS; 2020-10-19)
DX: A41.9 Sepsis, unspecified organism (principal); R65.21 Severe sepsis with septic shock; J96.01 Acute respiratory failure with hypoxia; N18.6 End stage renal disease; G93.41 Metabolic encephalopathy; J18.9 Pneumonia, unspecified organism; N17.9 Acute kidney failure, unspecified; D62 Acute posthemorrhagic anemia; K92.0 Hematemesis; Z68.41 Body mass index [BMI] 40.0-44.9, adult; C79.89 Secondary malignant neoplasm of other specified sites; N13.30 Unspecified hydronephrosis; C78.6 Secondary malignant neoplasm of retroperitoneum and peritoneum; E66.01 Morbid (severe) obesity due to excess calories; R57.8 Other shock; E87.5 Hyperkalemia; E87.6 Hypokalemia; D69.6 Thrombocytopenia, unspecified; Z93.6 Other artificial openings of urinary tract status; Z88.1 Allergy status to other antibiotic agents; C4A.9 Merkel cell carcinoma, unspecified; N13.9 Obstructive and reflux uropathy, unspecified; Z86.711 Personal history of pulmonary embolism; D63.0 Anemia in neoplastic disease; Z66 Do not resuscitate
CPT/HCPCS: 31500; 36415; 36555; 36600; 50387; 50431; 70450; 71045; 71250; 74018; 74230; 74470; 80053; 81001; 82140; 82550; 82553; 82607; 82746; 82805; 83540; 83605; 83690; 83735; 83880; 84100; 84466; 84484; 85007; 85025; 85027; 85045; 85379; 85384; 85610; 85730; 86704; 86705; 86706; 86850; 86900; 86920; 87040; 87071; 87086; 87186; 87205; 87340; 90962; 93005; 93306; 94002; 94003; 99152; 99153; 99251; 99285; C1769; J0330; J1442; J1644; J1720; J2020; J2060; J2150; J2250; J2353; J2370; J2543; J2765; J3010; J3370; J3430; J7030; J7050; P9016; P9034; P9047; U0002